=== PATIENT | male | born 1960 | race Caucasian/White ===

== ENCOUNTER 2018-12-22 05:46 | Day surgery (SDC) | payer SELFPAY ==
[2018-12-22] MEDS ORDERED: Lidocaine 2% Viscous Solution 15 ML Cup ONE (06:34)
[2018-12-22] MEDS ORDERED: Lidocaine 4% Top Soln 50 ML Bottle ONE (06:35)
[2018-12-22] MEDS ORDERED: Dextrose 5%-Lactated Ringers 1,000 ML IV SCH (06:45)
[2018-12-22] MEDS ORDERED: Albuterol/Ipratropium 3.0-0.5 MG/3 ML Neb Soln NEB ONE (07:00)
[2018-12-22] MEDS ORDERED: Midazolam 1 MG/ML 2 ML SDV ONE (07:11)
[2018-12-22] MEDS ORDERED: Propofol 200 MG/20 ML SDV ONE ×2 (07:11→08:42)
[2018-12-22] MEDS ORDERED: fentaNYL 100 MCG/2 ML SDV ONE (07:11)
[2018-12-22] MEDS ORDERED: Glycopyrrolate 0.2 MG/ML 2 ML SDV IVPUSH ONE (07:30)
[2018-12-22] MEDS ORDERED: Lidocaine 4% Top Soln LTA 4 ML Syringe Kit ONE (08:42)
--- NOTE | 2018-12-26 09:34 | OR ---
DATE OF PROCEDURE: 12/22/2018 PREOPERATIVE DIAGNOSES: 1. Peripheral right upper lobe mass. 2. Central left upper lobe mass. OPERATIVE PROCEDURES: Flexible bronchoscopy with tracheobronchial washings and, 1. Brushings sequentially to right upper lobe and left upper lobe (51751). 2. Bronchoalveolar lavage to right upper lobe (41824). 3. Transbronchial needle aspiration biopsies to right upper lobe and left upper lobe bronchi (27892). 4. Biopsy of mass involving left upper lobe bronchus ([id number]). ANESTHESIA: Topical plus IV sedation. INDICATION FOR PROCEDURE: This is a 58-year-old presenting with a complex pulmonary presentation. He has had cough for several months. He has a mass centrally in the left upper lobe, which comes down and obliterates the left upper lobe bronchus and also has a lobulated mass in the anterior segment of the right upper lobe. This was fairly peripheral. On the right side, there is some tissue anterior to the right upper lobe bronchus and the left upper lobe bronchus appears to be more or less confluent and encompassed by tumor. The plan will be to proceed with flexible bronchoscopy with brushings to both locations, probable bronchoalveolar lavage to right upper lobe, and transbronchial needle aspirations to both right upper lobe and left upper lobe bronchi. We will also obtain biopsies of the visible tumor likely located within the left upper lobe bronchus. Potential risks including bleeding and pneumothorax and such were reviewed with the patient, and he wishes to proceed. DETAILS OF PROCEDURE: The patient was taken to the operating room and placed in a semi- sitting position. IV sedation was administered, after which the nasal passages were anesthetized with 1% lidocaine. Then, Anesthesia placed translaryngeal injection of lidocaine. Passing through the right side of the nose, the visualized nasopharynx, hypopharynx, and larynx were unremarkable. Of note, both vocal cords were functioning normally. As one passed into the trachea, there was no significant splaying of the tracheal carinal course. As one visualized the left upper lobe area, the area of occlusion of the left upper lobe bronchus was confirmed. There appeared to be some focal necrosis of the visible tumor in that location. During attention to the right upper lobe, it was noted that the anterior segmental bronchus was slightly edematous in appearance, but otherwise the right lung tracheobronchial tree was unremarkable. At this point, brushes were then inserted into the anterior segment of the right upper lobe. Two sets of brushings were obtained. Then, following this, bronchoalveolar lavage to the anterior segment of the right upper lobe was accomplished with injection of 200 mL of saline into the area, and the fluid then being recovered and stent for cytologic as well as microbiologic workup. There appeared to be some probable enlarged lymphatic tissue or potentially tumor anterior to the right upper lobe bronchus and transbronchial needle aspiration biopsy was obtained from that area and sent in Saccomanno solution. Attention was then taken to the left side. Initially, some additional washings were obtained after irrigation of that area with some saline, and these were sent as a separate specimen from the general tracheobronchial washings. Some brushings were then able to be passed around the site of the tumor and two sets of brushings were obtained in the left upper lobe bronchus. Following this, then a transbronchial needle aspiration biopsy in the left upper lobe bronchus was accomplished, and this specimen sent in Saccomanno solution. Apparently, biopsies were obtained from the visible tumor located within the left upper lobe bronchus. Several biopsies were obtained, and there appeared to be good tissue being recovered. At that point, minimal bleeding was identified. The procedure was then concluded. The patient was taken to the recovery room in a satisfactory condition. There were no complications. Cj Montiel MD /[id number]
== END 2018-12-22 12:00 | disposition home or self-care (01) ==
LOC: JP.SDS 05:46
PROVIDERS: ATTEND Surgery
DX: C34.12 Malignant neoplasm of upper lobe, left bronchus or lung (principal); C78.5 Secondary malignant neoplasm of large intestine and rectum; R91.8 Other nonspecific abnormal finding of lung field; Z91.018 Allergy to other foods
CPT/HCPCS: 31623; 31624; 31629; 31633; 87015; 87070; 87077; 87102; 87116; 87205; 87206; 87220; 88112; 88305; 88341; 88342; A9270; J2250; J2704; J3010; J3490; J7042; J7620-GY

== ENCOUNTER 2019-01-04 11:16 | Day surgery (SDC) | payer SELFPAY ==
[~2019-01-04 11:16] MED LIST: Bupivacaine 0.5% 50 ML MDV ONE; Lidocaine 1% with EPINEPHrine 1:100,000 50 ML MDV ONE; Midazolam 1 MG/ML 2 ML SDV ONE; Propofol 200 MG/20 ML SDV ONE; fentaNYL 100 MCG/2 ML SDV ONE
[2019-01-04] MEDS ORDERED: Dextrose 5%-Lactated Ringers 1,000 ML IV SCH (11:30)
[2019-01-04] MEDS ORDERED: Acetaminophen 500 MG Tab PO ONE (11:30)
[2019-01-04] MEDS ORDERED: ceFAZolin 2 GM in Premix Bag 1 BAG IV ONE (12:30)
[2019-01-04] MEDS ORDERED: Propofol 200 MG/20 ML SDV ONE (14:11)
--- NOTE | 2019-01-09 09:45 | OR ---
DATE OF PROCEDURE: 01/04/2019 PREOPERATIVE DIAGNOSIS: Indication for central venous access. POSTOPERATIVE DIAGNOSIS: Indication for central venous access. PROCEDURE: Placement of Bard port via right internal jugular vein approach ([id number]). ANESTHESIA: Local plus IV sedation. INDICATION FOR PROCEDURE: The patient presents with bilateral lung lesions, which appear to be at this point related to metastatic colorectal carcinoma. The patient was felt to require urgent chemotherapy and a Bard port is to placed for the chemotherapy to be started tomorrow. Potential risks of the procedure including bleeding and infection, injury to underlying vasculature of the lung with possibility of port becoming infected or occluded were gone over and the patient wishes to proceed. DETAILS OF PROCEDURE: The patient was taken to the operating room and placed in a supine position. IV sedation was administered, after which the upper chest and neck areas were then prepped and draped. Initially, the left side was anesthetized with 1% lidocaine. The left subclavian vein could be cannulated and was cannulated on several occasions but we were unable to manipulate a wire from what appeared to be the junction of the jugular and subclavian vein. One suspected there may be some lymphadenopathy in the central chest causing some distortion of those veins and he was then taken to the right side, right subclavian area was also anesthetized with 1% lidocaine. Similar sequence happened with the vein. With use of the cannula, the wire could not be passed more centrally. Given this, the area over the internal jugular vein on the right side was then anesthetized and with visualization of the vein with ultrasound, it was cannulated from this site manipulated down into the inferior vena cava. At that point, some additional local was injected into the right infraclavicular area and a transverse incision was made and carried down through the skin, subcutaneous tissue, and pectoralis major fascia. A pocket was then constructed for the Bard PowerPort, which was then placed into the pocket, and then using the tunneler device, the catheter was then tunneled between the two incisions, and then using fluoroscopic evaluation, catheter was cut such that the tip would lie in the area of the right atrial superior vena caval junction. Introducer and peel-away catheter were then placed over the guidewire and the Bard port catheter was then placed without difficulty. Good in and outflow was noted. Ports were flushed with heparinized saline. The primary port incision was closed with 3-0 and 4-0 Vicryl stitch deep and a 4-0 Vicryl subcuticular stitch, and the initial puncture site over the jugular vein was closed with 4-0 Vicryl subcuticular stitch. Steri-Strips were applied and the patient was taken to the recovery room in satisfactory condition. There were no evident complications. Cj Montiel MD /[id number]
== END 2019-01-04 16:30 | disposition home or self-care (01) ==
LOC: JP.SDS 11:16
PROVIDERS: ATTEND Surgery
DX: C19 Malignant neoplasm of rectosigmoid junction (principal); C34.92 Malignant neoplasm of unspecified part of left bronchus or lung; C34.91 Malignant neoplasm of unspecified part of right bronchus or lung
CPT/HCPCS: 36561; A9270; C1788; J0690; J1642; J2250; J2704; J3010; J3490; J7042

== ENCOUNTER 2019-09-03 16:52 | Emergency (ER) | payer SELFPAY ==
--- NOTE | 2019-09-03 17:25 | EDM.PDOC ---
<Fco Cartwright G - Last Filed: 09/03/19 17:54> ED HPI GENERAL MEDICAL PROBLEM - General Chief Complaint: Gastrointestinal Problem Stated Complaint: LIGHTHEADED,VOMITING,SHARP PAIN IN CHEST Time Seen by Provider: 09/03/19 17:05 Source of Information: Reports: Patient, Family, Old Records, RN History Limitations: Reports: No Limitations - History of Present Illness INITIAL COMMENTS - FREE TEXT/NARRATIVE: 58 yo male with a pHx of colon CA presents with minimal bowel movements for the pasts few weeks. He has some constant abdominal pain that is not severe and a lack of appetite. No vomiting or fever. Recently started seeing Dr. Lira as his primary. Has tried several oral agents for his presumed constipation without good results, but no rectal agents. Also mentioned an episode of lateral eye and head twitching that was self- limited and he was aware when he was doing it, but couldn't stop it. Has a constant mild SCOTT. Is due in September for a head CT scan for tumor surveillance. Later in his ER course when I go back into the room he informs me that he has been vomiting whenever he eats for the past 2 days. He reports dark urine. Onset: Gradual Duration: Week(s): (2), Constant Location: Reports: Abdomen Quality: Reports: Ache Severity: Mild Improves with: Reports: None Worsens with: Reports: None Context: Reports: Other (See HPI) Associated Symptoms: Reports: Headaches, Seizure (See HPI regarding head and eye twitching episode.). Denies: Fever/Chills, Nausea/Vomiting Treatments ARTIFICIAL LIMB FITTER: Reports: Other (see below) (Miralax and some special tea designed to stimulate BM's) - Related Data Allergies Allergy/AdvReac Type Severity Reaction Status Date / Time wheat Allergy Severe Anaphylactic Verified 07/19/19 17:47 Shock Home Meds: Home Meds Multivitamin [Multi-Vitamin Daily] 1 each PO DAILY 08/16/18 [History] Past Medical History HEENT History: Reports: Hard of Hearing, Other (See Below) Other HEENT History: wears glasses Respiratory History: Reports: Other (See Below) Other Respiratory History: recent cough, lung CA Gastrointestinal History: Reports: Bowel Obstruction, Colon Polyp, Other (See Below) Other Gastrointestinal History: bowel tumor in 2016 Musculoskeletal History: Reports: Neck Pain, Chronic Oncologic (Cancer) History: Reports: Colon, Metastatic, Other (See Below) Other Oncologic History: skin - Infectious Disease History Infectious Disease History: Reports: Chicken Pox - Past Surgical History Head Surgeries/Procedures: Reports: None GI Surgical History: Reports: Colostomy, Hernia, Inguinal, Other (See Below) Other GI Surgeries/Procedures: bowel resection, colostomy reversal, bowel obstruction Other Musculoskeletal Surgeries/Procedures:: c5-c7 surgery February 07 2013 at [facility] Social & Family History - Tobacco Use Smoking Status *Q: Never Smoker - Caffeine Use Caffeine Use: Reports: Coffee - Recreational Drug Use Recreational Drug Use: No ED ROS GENERAL - Review of Systems Review Of Systems: See Below Constitutional: Reports: No Symptoms HEENT: Reports: No Symptoms Respiratory: Reports: No Symptoms Cardiovascular: Reports: No Symptoms Endocrine: Reports: No Symptoms GI/Abdominal: Reports: Abdominal Pain (mild, diffuse), Constipation (small volume stools, hard). Denies: Anorexia, Black Stool, Bloody Stool, Diarrhea, Distension, Flatus, Hematemesis, Hematochezia, Melena, Nausea, Vomiting : Reports: No Symptoms Musculoskeletal: Reports: No Symptoms Skin: Reports: No Symptoms Neurological: Reports: Headache (mild, fairly constant), Seizure (see HPI) Psychiatric: Reports: No Symptoms ED EXAM, GI/ABD - Physical Exam Exam: See Below Exam Limited By: No Limitations General Appearance: Alert, WD/WN, No Apparent Distress Eyes: Bilateral: Normal Appearance Ears: Normal External Exam, Normal Canal, Hearing Grossly Normal Nose: Normal Inspection, No Blood Throat/Mouth: Normal Inspection, Normal Lips, Normal Oropharynx, Normal Voice, No Airway Compromise Head: Atraumatic, Normocephalic Neck: Normal Inspection Respiratory/Chest: No Respiratory Distress, Lungs Clear, Normal Breath Sounds, No Accessory Muscle Use Cardiovascular: Regular Rate, Rhythm, No Edema GI/Abdominal Exam: Normal Bowel Sounds, Soft, Non-Tender, No Distention Back Exam: Normal Inspection. No: CVA Tenderness (R), CVA Tenderness (L) Extremities: Normal Inspection, Normal Range of Motion, Non-Tender, No Pedal Edema Neurological: Alert, Oriented, CN II-XII Intact, Normal Cognition, No Motor/ Sensory Deficits Psychiatric: Normal Affect, Normal Mood Skin Exam: Warm, Dry, Intact, Normal Color, No Rash Course - Vital Signs Last Recorded V/S: Last Vital Signs Temp 96.5 F 12/29/19 17:03 Pulse 59 L 09/03/19 17:03 Resp 16 09/03/19 17:03 BP 148/89 H 09/03/19 17:03 Pulse Ox 98 09/03/19 17:03 - Orders/Labs/Meds Labs: Laboratory Tests 09/03/19 09/03/19 Range/Units 17:50 17:50 WBC 6.3 (4.5-11.0) K/uL RBC 5.57 (4.30-5.90) M/uL Hgb 14.3 (12.0-15.0) g/dL Hct 44.3 (40.0-54.0) % MCV 80 (80-98) fL MCH 26 L (27-31) pg MCHC 32 (32-36) % Plt Count 304 (150-400) K/uL Sodium 136 L (140-148) mmol/L Potassium 3.9 (3.6-5.2) mmol/L Chloride 98 L (100-108) mmol/L Carbon Dioxide 28 (21-32) mmol/L Anion Gap 13.9 (5.0-14.0) mmol/L BUN 9 (7-18) mg/dL Creatinine 0.8 (0.8-1.3) mg/dL Est Cr Clr Drug Dosing 92.95 mL/min Estimated GFR (MDRD) > 60 (>60) Glucose 119 H (74-106) mg/dL Calcium 9.1 (8.5-10.1) mg/dL Total Bilirubin 0.6 (0.2-1.0) mg/dL AST 14 L (15-37) U/L ALT 19 (12-78) U/L Alkaline Phosphatase 89 (46-116) U/L Total Protein 7.3 (6.4-8.2) g/dL Albumin 3.7 (3.4-5.0) g/dL Globulin 3.6 H (2.3-3.5) g/dL Albumin/Globulin Ratio 1.0 L (1.2-2.2) Meds: Medications Discontinued Medications Generic Name Dose Route Start Last Admin Trade Name Freq PRN Reason Stop Dose Admin Lactated Ringer's 1,000 mls @ 1,000 mls/hr 09/03/19 17:41 09/03/19 18:12 Ringers, Lactated IV 09/03/19 18:40 1,000 mls/hr BOLUS ONE Administration - Radiology Interpretation Free Text/Narrative:: Flat and upright abdominal [id number] amt of stool in descending colon. No sign of obstruction. Departure - Departure Disposition: Home, Self-Care 01 Clinical Impression: Functional constipation - Discharge Information Instructions: Chronic Constipation, Constipation, Adult Referrals: Roverto Lira MD [Primary Care Provider] - Forms: ED Department Discharge Additional Instructions: Try the colonoscopy prep, please keep your follow-up appointment with your primary care this week call or return to the emergency department with worsening of symptoms Sepsis Event Note - Evaluation Sepsis Screening Result: No Definite Risk - Focused Exam Vital Signs: Vital Signs Temp Pulse Resp BP Pulse Ox 09/03/19 17:03 96.5 F 59 L 16 148/89 H 98 Date Exam was Performed: 09/03/19 Time Exam was Performed: 17:55 <OfficerRainer - Last Filed: 09/03/19 19:16> Departure - Departure Time of Disposition: 19:15 Condition: Poor Sepsis Event Note - Focused Exam Date Exam was Performed: 09/03/19 Time Exam was Performed: 19:13 - Assessment/Plan Plan: Took over care from Dr. Cartwright at 1900 Assessment Acuity = acute Site and laterality = functional constipation complicating the patient with known history of stage IV colorectal cancer with metastases Etiology = slow transit time Manifestations = abdominal pain Location of injury = Home Lab values = CBC, CMP unremarkable plain film the abdomen does show large amount of stool Plan I did review lab work and x-ray results with him he had minimal success with an enema he is willing to try the MiraLAX colonoscopy prep he has a follow-up appointment with his primary care this week This note was dictated using [employer] voice recognition software please call with any questions on syntax or grammar.
--- NOTE | 2019-09-03 17:47 | CRLCR ---
INDICATION: Decreased bowel movements. Nausea. Bloating. TECHNIQUE: Flat and upright, 3 images. COMPARISON: 05/16/2019. FINDINGS: Considerable stool throughout the colon. Gas pattern otherwise unremarkable. Staple line in the right mid abdomen, as before. Phleboliths in the pelvis. Free air not excluded as diaphragms cut off on the upright image. IMPRESSION: 1. Apparent constipation. 2. Right mid abdominal postop changes. Dictated by Justo Muniz MD @ Sep 03 2019 5:43PM Signed by Dr. Justo Muniz @ Sep 03 2019 5:46PM
[2019-09-03] MEDS: Lactated Ringers 1,000 ML IV ONE (18:12)
[2019-09-03] MEDS: LORazepam 2 MG/ML SDV IVPUSH ONE (20:03)
[2019-09-03] MEDS: Sodium Chloride 0.9% 100 ML IV SCH (21:04)
[2019-09-03] MEDS: Iopamidol 612 MG/ML 100 ML Bottle IV SCH (21:04)
[2019-09-03] MEDS: Sodium Chloride 0.9% 10 ML Syringe FLUSH ONE (21:04)
[2019-09-03] MEDS: Sodium Chloride 0.9% 1,000 ML IV SCH (21:38)
[2019-09-03] MEDS: Sodium Chloride 0.9% 10 ML Syringe FLUSH PRN (21:39)
--- NOTE | 2019-09-03 21:45 | CRLCT ---
INDICATION: Stage IV colon cancer. Dizzy. TECHNIQUE: Scanning of the head was performed without IV contrast material. COMPARISON: None. FINDINGS: A roughly 2.5 cm mass in the posteromedial left cerebellar hemisphere with associated vasogenic edema is demonstrated. This is producing significant mass effect with rightward displacement and compression of the 4th ventricle. No hydrocephalus is evident. This lesion is consistent with a metastasis. A similar 1.5 cm lesion is demonstrated in the superior left frontal lobe. Associated vasogenic edema is noted. No acute hemorrhage is demonstrated. Differentiation between the garcia matter and white matter is preserved. No calvarial abnormality is evident. The visualized paranasal and mastoid sinuses are clear. IMPRESSION: 1. 2.5 cm metastasis with vasogenic edema and significant mass effect in the left cerebellar hemisphere. Mass-effect is displacing and compressing the 4th ventricle. No hydrocephalus. 2. 1.5 cm left frontal lobe metastasis. Please note that all CT scans at this facility use dose modulation, iterative reconstruction, and/or weight-based dosing when appropriate to reduce radiation dose to as low as reasonably achievable. Dictated by Justo Muniz MD @ Sep 03 2019 9:38PM Signed by Dr. Justo Muniz @ Sep 03 2019 9:43PM
--- NOTE | 2019-09-03 23:12 | CRLCT ---
Indication: Stage IV colorectal carcinoma with metastases. Pain. Technique: CT of the chest, abdomen, and pelvis. 100 cc of Isovue-300 IV. Coronal/sagittal reconstruction images. Comparison: CT of the chest, 03/15/2019. CT of the abdomen and pelvis, 08/13/2018. Findings: Chest: The inferior thyroid gland is symmetric. There is extensive mediastinal and hilar lymphadenopathy, which appears internally necrotic. For example, a lesion in station 2R measures 21 millimeters in short axis, image 41, series 2. This has progressed when compared with 03/15/2019. There is a small left pleural effusion, with subtle enhancing pleural lesions, compatible with pleural metastases. For example, 2.5 cm lesion on image 66, series 2. There is no pericardial or right pleural effusion. There is a soft tissue mass in the left upper lobe, which measures 5.9 by 4.2 cm in AP and transverse dimensions. This has progressed when compared with previous. There is associated resorptive atelectasis of the left upper lobe, secondary to occlusion of the left upper lobe bronchus. This is seen well on image 47, series 2. There is no thoracic aortic dissection. There are enlarged lymph nodes at stations 11L, 12L, and also contralateral adenopathy, best seen at station 10R, measuring up to 2.1 cm on image 48, series 2. This is all progressed when compared with 03/15/2019. Lung windows demonstrate a region of masslike consolidation in the right upper lobe, with nodularity surrounding this lesion, which may represent satellite lesions. The mass measures a maximum of 4.7 x 3.8 cm in AP and transverse dimensions. Previously, using a similar measurement technique, this mass measured 2.8 x 2.4 cm on the study from 03/15/2019. There is no honeycomb formation. There is no pneumothorax. There is a suspected endobronchial component of the left upper lobe mass, with convex borders, image 48, series 3. Abdomen/pelvis: There is no liver lesion by CT. No perihepatic ascites. No inflammatory changes of the gallbladder. Spleen size is normal. No adrenal mass. There is no hydronephrosis or perinephric fluid collection. No pancreatic mass, pancreatic duct dilation, glandular atrophy. Presumably, the patient has had a prior low anterior resection, with extraluminal gas and fluid in the presacral space, seen best on image 193, series 2. The findings are suspicious for a breakdown of the anastomosis with abscess. There is a 2 centimeter collection on image 193, series 2. Prostatic enlargement. Urinary bladder is normal. There is no small-bowel or colonic obstruction. There is no pneumatosis or portal venous gas. No adenopathy by size criteria in the abdomen or pelvis. The celiac axis, SMA, and JESÚS are patent. No portal vein thrombosis. The splenic vein and SMV are patent. Small umbilical hernia containing fat on image 148, series 2. No enteric compromise. Mild bladder wall thickening on the left, on image 191, series 2. The extraperitoneal space of Retzius is clear. The bone windows demonstrate a small sclerotic lesion in the left proximal femur, stable from previous, measuring 10 millimeters on image 200, series 2. ACDF changes in the cervical spine. Manubrium and body of the sternum are intact. Impression: 1. Bilateral lung masses, with mediastinal/hilar lymphadenopathy, with significant progression when compared with the CT from 03/15/2019. Endobronchial component with occlusion of the left upper lobe bronchus/resorptive atelectasis. 2. Evidence of pleural-based disease in the left hemithorax. Pleural based nodules were also present on the CT from 03/15/2019. There is no perilymphatic nodularity on the current exam. 3. Presumably, the patient has undergone a prior anterior resection. There is a suspicious fluid collection posterior to the anastomosis along with presacral edema, suspicious for anastomotic breakdown/abscess. This is seen best on image 193, series 2. 4. This report is in agreement with the preliminary report submitted by [email or web address], 09/03/2019, 2311 hours. Please note that all CT scans at this facility use dose modulation, iterative reconstruction, and/or weight-based dosing when appropriate to reduce radiation dose to as low as reasonably achievable. Dictated by Lucas Chu MD @ Sep 07 2019 2:06PM Signed by Dr. Lucas Chu @ Sep 07 2019 2:19PM
== END 2019-09-04 00:22 | disposition home or self-care (01) ==
LOC: JP.ED 16:52
DX: K59.04 Chronic idiopathic constipation (principal); R11.2 Nausea with vomiting, unspecified; R07.9 Chest pain, unspecified; Z85.038 Personal history of other malignant neoplasm of large intestine; Z85.118 Personal history of other malignant neoplasm of bronchus and lung; Z91.018 Allergy to other foods
CPT/HCPCS: 36415; 70450; 71260; 74019; 74177; 80053; 84484; 85027; 96361; 96374; 99285-25; J2060; J7030; J7050; J7120; Q9967